=== PATIENT | female | born 1995 | race Native Hawaiian/Other Pacific Islander ===

== ENCOUNTER 2018-11-07 14:02 | Emergency (ER) | payer OTHER ==
[2018-11-07 14:32] VITALS: BMI 22.4
[2018-11-07 14:33] VITALS: BP 113/78; PULSE 66; RESP 18; TEMP 98.8; O2SAT 99
--- NOTE | 2018-11-07 15:08 | ED PDOC ---
History of Present Illness History of Present Illness: 23 y/o female with no significant PMHx presents to the ED for evaluation of a fever for the past two weeks. Patient reports of taking Tylenol for pain with some relief. Patient notes fever is associated with sweats. Otherwise, patient denies any other associated symptoms including ear pain and throat pain. Of note, patient reports of taking short acting control pills for the past four days. PMD: no provider HPI: Influenza Time Seen by Provider: 11/07/18 15:08 Chief Complaint: Flu-like Symptoms Chief Complaint (Provider): Flu-like Symptoms History Per: Patient Onset/Duration Of Symptoms: Days (x14) Symptoms include: fever Past Medical History Reviewed: Historical Data, Nursing Documentation, Vital Signs Vital Signs: Last Vital Signs Temp 98.8 F 11/07/18 14:32 Pulse 66 11/07/18 14:32 Resp 18 11/07/18 14:32 BP 113/78 11/07/18 14:32 Pulse Ox 99 11/07/18 14:32 - Medical History PMH: No Chronic Diseases - Surgical History Surgical History: No Surg Hx - Family History Family History: States: Unknown Family Hx - Allergies Allergies/Adverse Reactions: Allergies Allergy/AdvReac Type Severity Reaction Status Date / Time No Known Allergies Allergy Verified 11/07/18 14:30 Review of Systems ROS Statement: Except As Marked, All Systems Reviewed And Found Negative Constitutional: Positive for: Fever, Sweats ENT: Negative for: Ear Pain, Throat Pain Physical Exam - Reviewed Nursing Documentation Reviewed: Yes Vital Signs Reviewed: Yes - Physical Exam Appears: Positive for: No Acute Distress Head Exam: Positive for: ATRAUMATIC Skin: Positive for: Normal Color, Warm, Dry. Negative for: Diaphoresis, Rash Eye Exam: Positive for: Normal appearance ENT: Positive for: Pharyngeal Erythema (no exudates), Other (mildly erythematous uvula). Negative for: Tonsillar Exudate Neck: Positive for: Normal (1+ cervical nodes bilaterally) Cardiovascular/Chest: Positive for: Regular Rate, Rhythm. Negative for: Murmur Respiratory: Positive for: Normal Breath Sounds. Negative for: Other Extremity: Positive for: Normal ROM Neurological/Psych: Positive for: Awake, Alert, Oriented Medical Decision Making Medical Decision Making: Time: 1510 Impression: Rule out flu and strep Plan: -- flu swabs -- rapid strep -- Patent is afebrile on presentation. flu (-) rapid strep (-) pt remains afebrile Pt is stable for discharge Scribe Attestation: Documented by Noe Villegas, acting as a scribe Tamra Molina PA-C. Provider Scribe Attestation: All medical record entries made by the Scribe were at my direction and personally dictated by me. I have reviewed the chart and agree that the record accurately reflects my personal performance of the history, physical exam, medical decision making, and the department course for this patient. I have also personally directed, reviewed, and agree with the discharge instructions and dis position. - ECG O2 Sat by Pulse Oximetry: 99 Disposition - Clinical Impression Clinical Impression: Influenza-like symptoms - Patient ED Disposition Is Patient to be Admitted: No Counseled Patient/Family Regarding: Diagnosis, Need For Followup - Disposition Disposition: Routine/Home Disposition Time: 16:35 Condition: STABLE Additional Instructions: Dayquil Nyquil Rest Fluids Chicken Soup Instructions: Flu, Adult (DC) Forms: [employer] (Citizen Of [place])
== END 2018-11-07 17:21 | disposition home or self-care (01) ==
LOC: H.ER 14:02
DX: J11.1 Influenza due to unidentified influenza virus with other respiratory manifestations (principal)